=== PATIENT | female | born 1995 | race American Indian/Alaskan Native ===

== ENCOUNTER 2016-12-29 10:51 | Emergency (ER) | payer MEDICAID ==
[2016-12-29] MEDS ORDERED: TYLENOL/CODEINE PO ONE (12:50)
[2016-12-29] MEDS ORDERED: MOTRIN PO ONE (12:50)
[2016-12-29] MEDS ORDERED: DUONEB *Not for PRN Use IH ONE (12:50)
[2016-12-29] MEDS ORDERED: TESSALON PERLES PO ONE (12:50)
--- NOTE | 2016-12-29 12:56 | Emergency Department Report ---
ED General Adult HPI - General Chief complaint: Upper Respiratory Infection Stated complaint: ASTHMA,WHEEZING,FEVER Time Seen by Provider: 12/29/16 12:44 Source: patient Mode of arrival: Ambulatory Limitations: No Limitations - History of Present Illness Initial comments: PT states she woke up at 0400 this morning coughing, wheezing and having chills. PT states she took her temperature and it was 103. PT states she treated her fever with Motrin. PT states she has asthma and she is out of her albuterol. PT states she came to the ED before she felt worse. PT reports that her chest feels tight, like it does when her asthma acts up. PT states she has recently been taking care of her two daughters (7 months and 2 years) with bronchiolits. She states she was in the ED the other day with them. MD Complaint: fever, c/c/c -: Gradual, During the night Location: chest Severity scale (0 -10): 7 Quality: other (tight ) Consistency: constant (tightness ), intermittent (chest pain, pt reports that it hurts to cough ) Improves with: none Associated Symptoms: chest pain, fever/chills, malaise. denies: nausea/vomiting Treatments Prior to Arrival: NSAID (at 0400) - Related Data Previous Rx's Medication Instructions Recorded Last Taken Type Albuterol Sulfate [Ventolin HFA] 2 puff IH Q4H PRN #1 hfa.aer.ad 12/29/16 Unknown Rx Benzonatate [Tessalon Perles] 100 mg PO Q8HR PRN #12 capsule 12/29/16 Unknown Rx Ibuprofen [Motrin] 600 mg PO Q8H PRN #15 tablet 12/29/16 Unknown Rx predniSONE [Deltasone] 20 mg PO BID #6 tab 12/29/16 Unknown Rx Allergies Allergy/AdvReac Type Severity Reaction Status Date / Time No Known Allergies Allergy Unverified 05/06/13 01:57 ED Review of Systems ROS: Stated complaint: ASTHMA,WHEEZING,FEVER Other details as noted in HPI Comment: All other systems reviewed and negative Constitutional: chills, fever, malaise ENT: throat pain, congestion Respiratory: cough, wheezing, other (pt reports feeling like she has an asthma attack ) Cardiovascular: chest pain (hurts to cough ) Gastrointestinal: denies: abdominal pain, nausea, vomiting Genitourinary: denies: dysuria Musculoskeletal: myalgia. denies: back pain ED Past Medical Hx - Past Medical History Previous Medical History?: Yes Hx Asthma: Yes - Surgical History Past Surgical History?: No - Social History Smoking Status: Never Smoker Substance Use Type: None - Medications Home Medications: Home Medications Medication Instructions Recorded Confirmed Last Taken Type Albuterol Sulfate [Ventolin HFA] 2 puff IH Q4H PRN #1 hfa.aer.ad 12/29/16 Unknown Rx Benzonatate [Tessalon Perles] 100 mg PO Q8HR PRN #12 capsule 12/29/16 Unknown Rx Ibuprofen [Motrin] 600 mg PO Q8H PRN #15 tablet 12/29/16 Unknown Rx predniSONE [Deltasone] 20 mg PO BID #6 tab 12/29/16 Unknown Rx ED Physical Exam - General Limitations: No Limitations General appearance: alert, in no apparent distress - Head Head exam: Present: atraumatic, normocephalic, normal inspection - Eye Eye exam: Present: normal appearance, PERRL, EOMI. Absent: conjunctival injection, nystagmus - ENT ENT exam: Present: mucous membranes moist, TM's normal bilaterally, normal external ear exam - Expanded ENT Exam Expanded Mouth exam: Present: normal external inspection. Absent: drooling, trismus, muffled voice Throat exam: Positive: tonsillar erythema (mild ), tonsillomegaly. Negative: tonsillar exudate, R peritonsillar mass, L peritonsillar mass - Neck Neck exam: Present: normal inspection, full ROM. Absent: tenderness, lymphadenopathy - Respiratory Respiratory exam: Present: normal lung sounds bilaterally, other (dry cough during exam ). Absent: respiratory distress, wheezes, rhonchi, stridor - Cardiovascular Cardiovascular Exam: Present: normal rhythm, tachycardia - GI/Abdominal GI/Abdominal exam: Present: soft. Absent: tenderness, guarding, rebound - Extremities Exam Extremities exam: Present: normal inspection, full ROM - Back Exam Back exam: Present: normal inspection, full ROM. Absent: tenderness, CVA tenderness (R), CVA tenderness (L), muscle spasm, paraspinal tenderness, vertebral tenderness - Neurological Exam Neurological exam: Present: alert, oriented X3, normal gait - Psychiatric Psychiatric exam: Present: normal affect, normal mood - Skin Skin exam: Present: warm, dry, intact, normal color ED Course Vital Signs 12/29/16 12/29/16 12/29/16 10:57 12:46 13:25 Temperature 99.8 F H 100.3 F H Pulse Rate 128 H 125 H Respiratory 20 20 16 Rate Blood Pressure 146/76 Blood Pressure 99/71 [Left] O2 Sat by Pulse 100 Oximetry 12/29/16 12/29/16 13:26 15:28 Temperature 97.5 F L Pulse Rate 114 H Respiratory 16 18 Rate Blood Pressure Blood Pressure 103/69 [Left] O2 Sat by Pulse Oximetry VS improved - Reevaluation(s) Reevaluation #1: 12/29/16 12:59 PT aware of plan of care. Reevaluation #2: 12/29/16 15:06 PT states she is feeling better. PT aware of lab results. - Pulse Oximetry Interpretation Digit-Finger Initial Pulse Oximetry Readin Actions Taken: none ED Medical Decision Making - Differential Diagnosis viral uri, strep pharyngitis, influenza Critical Care Time: No Critical care attestation.: If time is entered above; I have spent that time in minutes in the direct care of this critically ill patient, excluding procedure time. ED Disposition Clinical Impression: Viral URI with cough, Asthma exacerbation Disposition: DC-01 TO HOME OR SELFCARE Is pt being admited?: No Does the pt Need Aspirin: No Condition: Stable Instructions: Asthma (ED), Upper Respiratory Infection (ED) Prescriptions: Albuterol Sulfate [Ventolin HFA] 2 puff IH Q4H PRN #1 hfa.aer.ad PRN Reason: Shortness Of Breath Benzonatate [Tessalon Perles] 100 mg PO Q8HR PRN #12 capsule PRN Reason: Cough Ibuprofen [Motrin] 600 mg PO Q8H PRN #15 tablet PRN Reason: Pain predniSONE [Deltasone] 20 mg PO BID #6 tab Referrals: PRIMARY CAREMD [Primary Care Provider] - 3-5 Days CHAVO OAKES MD [Staff Physician] - 3-5 Days [facility] [Outside] - 3-5 Days Forms: Work/School Release Form(ED) Time of Disposition: 15:09
[2016-12-29 15:30] VITALS: BP 103/69
== END 2016-12-29 15:33 | disposition home or self-care (01) ==
LOC: ED 10:51
DX: J45.901 Unspecified asthma with (acute) exacerbation (principal); J06.9 Acute upper respiratory infection, unspecified
CPT/HCPCS: 87116; 87400; 87430; 94640